=== PATIENT | female | born 1945 | race Two or more races ===

== ENCOUNTER 2017-09-23 20:47 | Emergency (ER) | payer OTHER ==
[~2017-09-23] VITALS: Ht 170.2 cm; Wt 98.9 kg
[~2017-09-23 20:47] MED LIST: COSOPT PF EYE1 EACH; GABAPENTIN600 MG; HUMULIN N3 ML; HUMULIN R500 U/ML; LANTUS100 U/ML; LOSARTAN-HCTZ1 EAC1; SIMVASTATIN40 MG; SYNTHROID150 MCG
[2017-09-24] MEDS ORDERED: ZOFRAN ODT4 MG PO (02:56)
== END 2017-09-24 03:01 | disposition home or self-care (01) ==
LOC: ER 20:47
DX: E86.0 Dehydration (principal); R11.2 Nausea with vomiting, unspecified; E11.65 Type 2 diabetes mellitus with hyperglycemia; T61.771A Other fish poisoning, accidental (unintentional), initial encounter; Y92.89 Other specified places as the place of occurrence of the external cause

== ENCOUNTER 2017-11-06 13:45 | Inpatient (IN) | payer OTHER ==
[~2017-11-06] VITALS: Ht 170.2 cm; Wt 102.1 kg
[~2017-11-06 13:45] MED LIST changes: +ZOFRAN ODT4 MG PO
[2017-12-06] MEDS ORDERED: HUMALOG100 UNIT/1 (13:34)
[2017-12-13] MEDS ORDERED: DOCUSATE SODIU100 MG PO (10:05)
[2017-12-13] MEDS ORDERED: GABAPENTIN800 MG PO (10:05)
[2017-12-13] MEDS ORDERED: AMOX-CLAV 875-1 EACH PO (10:06)
[2017-12-13] MEDS ORDERED: CLONAZEPAM1 MG PO (10:07)
[2017-12-13] MEDS ORDERED: PERCOCET 5-3251 EACH PO (10:07)
== END 2017-12-13 14:08 | disposition home or self-care (01) | DRG 460 ==
LOC: SURH 12-11 13:45 → O/R 12-12 05:30 → SURH 12-12 05:30
PROVIDERS: Orthopaedic Surgery Orthopaedic Surgery of the Spine
PROC: 0SG00AJ Fusion of Lumbar Vertebral Joint with Interbody Fusion Device, Posterior Approach, Anterior Column, Open Approach (ICD-10-PCS; 2017-12-12)
PROC: 0ST20ZZ Resection of Lumbar Vertebral Disc, Open Approach (ICD-10-PCS; 2017-12-12)
PROC: 07DS3ZZ Extraction of Vertebral Bone Marrow, Percutaneous Approach (ICD-10-PCS; 2017-12-12)
PROC: 0SG00A0 Fusion of Lumbar Vertebral Joint with Interbody Fusion Device, Anterior Approach, Anterior Column, Open Approach (ICD-10-PCS; principal; 2017-12-12 12:45)
DX: M47.26 Other spondylosis with radiculopathy, lumbar region (principal); M48.061 Spinal stenosis, lumbar region without neurogenic claudication; M51.16 Intervertebral disc disorders with radiculopathy, lumbar region; I10 Essential (primary) hypertension; E11.9 Type 2 diabetes mellitus without complications

== ENCOUNTER 2017-11-30 09:43 | Outpatient (CLI) | payer OTHER | END 2017-11-30 15:57 | disposition home or self-care (01) | LOC: RAD 09:43 | DX: R07.1 Chest pain on breathing (principal) ==

== ENCOUNTER 2018-01-29 10:58 | Outpatient (CLI) | payer OTHER ==
[~2018-01-29 10:58] MED LIST changes: +AMOX-CLAV 875-1 EACH PO; +CLONAZEPAM1 MG PO; +DOCUSATE SODIU100 MG PO; +GABAPENTIN800 MG PO; +HUMALOG100 UNIT/1; +PERCOCET 5-3251 EACH PO
== END 2018-01-29 11:07 | disposition home or self-care (01) ==
LOC: RAD 10:58
DX: M51.36 Other intervertebral disc degeneration, lumbar region (principal); Z98.1 Arthrodesis status

== ENCOUNTER 2018-03-05 22:56 | Emergency (ER) | payer OTHER ==
[~2018-03-05] VITALS: Ht 170.2 cm; Wt 102.1 kg
[2018-03-06] MEDS ORDERED: ZOFRAN ODT8 MG PO (06:19)
[2018-03-06] MEDS ORDERED: RANITIDINE HCL300 MG PO (06:19)
== END 2018-03-06 | disposition home or self-care (01) ==
LOC: ER 22:56
DX: R10.84 Generalized abdominal pain (principal)

== ENCOUNTER → 2018-03-16 | Outpatient (CLI) | payer OTHER ==
[~2018-03-16] MED LIST changes: +RANITIDINE HCL300 MG PO; +ZOFRAN ODT8 MG PO
== END | disposition home or self-care (01) ==
LOC: RAD 09:28
DX: M48.07 Spinal stenosis, lumbosacral region (principal); Z98.1 Arthrodesis status

== ENCOUNTER 2018-04-12 11:23 | Outpatient (CLI) | payer OTHER | END 2018-04-12 11:26 | disposition home or self-care (01) | LOC: SONOGRAMA 11:23 → LAB 11:23 | DX: R10.13 Epigastric pain (principal); Z51.81 Encounter for therapeutic drug level monitoring; M48.07 Spinal stenosis, lumbosacral region; Z98.1 Arthrodesis status ==

== ENCOUNTER → 2018-04-15 | Outpatient (CLI) | payer OTHER ==
[~2018-04-15] MED LIST changes: +CELECOXIB200 MG PO; +PROTONIX40 MG PO; +SKELAXIN800 MG PO
== END | disposition home or self-care (01) ==
LOC: TOM 03-16 15:00
DX: R10.13 Epigastric pain (principal); K30 Functional dyspepsia; M48.07 Spinal stenosis, lumbosacral region; Z98.1 Arthrodesis status
CPT/HCPCS: 72148; 74178; Q9965

== ENCOUNTER 2018-04-25 13:50 | Emergency (ER) | payer OTHER ==
[~2018-04-25] VITALS: Ht 170.2 cm; Wt 99.8 kg
[~2018-04-25 13:50] MED LIST changes: -CELECOXIB200 MG PO; -PROTONIX40 MG PO; -SKELAXIN800 MG PO
[2018-04-25] MEDS ORDERED: PROTONIX40 MG PO (14:50)
[2018-04-25] MEDS ORDERED: PERCOCET 5-3251 EACH PO (20:18)
[2018-04-25] MEDS ORDERED: SKELAXIN800 MG PO (20:18)
[2018-04-25] MEDS ORDERED: CELECOXIB200 MG PO (20:18)
== END 2018-04-25 21:38 | disposition home or self-care (01) ==
LOC: ER 13:50
DX: I95.89 Other hypotension (principal); R10.13 Epigastric pain

== ENCOUNTER 2018-08-22 13:56 | Outpatient (CLI) | payer OTHER ==
[~2018-08-22 13:56] MED LIST changes: +CELECOXIB200 MG PO; +PROTONIX40 MG PO; +SKELAXIN800 MG PO
== END 2018-08-22 14:01 | disposition home or self-care (01) ==
LOC: MAMO-SONO 13:56
DX: Z12.31 Encounter for screening mammogram for malignant neoplasm of breast (principal); C50.311 Malignant neoplasm of lower-inner quadrant of right female breast; C18.2 Malignant neoplasm of ascending colon; Z85.3 Personal history of malignant neoplasm of breast; D51.1 Vitamin B12 deficiency anemia due to selective vitamin B12 malabsorption with proteinuria; D51.0 Vitamin B12 deficiency anemia due to intrinsic factor deficiency; D51.3 Other dietary vitamin B12 deficiency anemia; Z86.010 Personal history of colon polyps; E03.8 Other specified hypothyroidism; E78.49 Other hyperlipidemia; E08.21 Diabetes mellitus due to underlying condition with diabetic nephropathy; E08.42 Diabetes mellitus due to underlying condition with diabetic polyneuropathy; E08.321 Diabetes mellitus due to underlying condition with mild nonproliferative diabetic retinopathy with macular edema; M51.06 Intervertebral disc disorders with myelopathy, lumbar region; I10 Essential (primary) hypertension; Z90.11 Acquired absence of right breast and nipple

== ENCOUNTER 2018-08-22 14:47 | Outpatient (CLI) | payer OTHER | END 2018-08-22 15:45 | disposition home or self-care (01) | LOC: NUCLEAR 14:47 | DX: C50.311 Malignant neoplasm of lower-inner quadrant of right female breast (principal); C18.2 Malignant neoplasm of ascending colon; D51.1 Vitamin B12 deficiency anemia due to selective vitamin B12 malabsorption with proteinuria; D51.0 Vitamin B12 deficiency anemia due to intrinsic factor deficiency; D51.3 Other dietary vitamin B12 deficiency anemia; Z86.010 Personal history of colon polyps; E03.9 Hypothyroidism, unspecified; E78.5 Hyperlipidemia, unspecified; E08.21 Diabetes mellitus due to underlying condition with diabetic nephropathy; M51.06 Intervertebral disc disorders with myelopathy, lumbar region; I10 Essential (primary) hypertension; Z90.11 Acquired absence of right breast and nipple; M81.0 Age-related osteoporosis without current pathological fracture ==

== ENCOUNTER → 2018-10-17 | Outpatient (CLI) | payer OTHER | END | disposition home or self-care (01) | LOC: RAD 11:26 | DX: M51.36 Other intervertebral disc degeneration, lumbar region (principal) ==

== ENCOUNTER 2019-01-23 09:27 | Outpatient (CLI) | payer OTHER | END 2019-01-23 09:35 | disposition home or self-care (01) | LOC: NUCLEAR 09:27 | DX: I87.2 Venous insufficiency (chronic) (peripheral) (principal); C50.311 Malignant neoplasm of lower-inner quadrant of right female breast; Z85.3 Personal history of malignant neoplasm of breast; M51.06 Intervertebral disc disorders with myelopathy, lumbar region ==

== ENCOUNTER 2019-01-23 13:24 | Outpatient (CLI) | payer OTHER | END 2019-01-23 13:29 | disposition home or self-care (01) | LOC: MRI 13:24 | DX: M48.061 Spinal stenosis, lumbar region without neurogenic claudication (principal); Z98.1 Arthrodesis status | CPT/HCPCS: 72148 ==

== ENCOUNTER 2019-01-31 10:33 | Outpatient (CLI) | payer OTHER | END 2019-01-31 10:40 | disposition home or self-care (01) | LOC: NUCLEAR 10:33 | DX: I73.9 Peripheral vascular disease, unspecified (principal); C50.311 Malignant neoplasm of lower-inner quadrant of right female breast; C18.2 Malignant neoplasm of ascending colon; Z85.3 Personal history of malignant neoplasm of breast; D51.1 Vitamin B12 deficiency anemia due to selective vitamin B12 malabsorption with proteinuria; D51.3 Other dietary vitamin B12 deficiency anemia; Z86.010 Personal history of colon polyps; E03.8 Other specified hypothyroidism; E78.49 Other hyperlipidemia; E08.21 Diabetes mellitus due to underlying condition with diabetic nephropathy; E08.42 Diabetes mellitus due to underlying condition with diabetic polyneuropathy; E08.321 Diabetes mellitus due to underlying condition with mild nonproliferative diabetic retinopathy with macular edema; M51.06 Intervertebral disc disorders with myelopathy, lumbar region; I10 Essential (primary) hypertension; Z90.11 Acquired absence of right breast and nipple ==

== ENCOUNTER 2019-02-05 10:27 | Outpatient (CLI) | payer OTHER | END 2019-02-05 10:32 | disposition home or self-care (01) | LOC: TOM 10:27 | DX: I71.2 Thoracic aortic aneurysm, without rupture (principal) ==

== ENCOUNTER 2019-02-19 22:49 | Emergency (ER) | payer OTHER ==
[~2019-02-19] VITALS: Ht 165.1 cm; Wt 85.7 kg
== END 2019-02-20 13:00 | disposition home or self-care (01) ==
LOC: ER 22:49
DX: T61.774A Other fish poisoning, undetermined, initial encounter (principal); E86.0 Dehydration; R10.11 Right upper quadrant pain; D41.4 Neoplasm of uncertain behavior of bladder; Y92.89 Other specified places as the place of occurrence of the external cause

== ENCOUNTER 2019-06-06 06:58 | Outpatient (CLI) | payer OTHER | END 2019-06-06 07:06 | disposition home or self-care (01) | LOC: RAD 06:58 → LAB 06:58 | DX: K80.00 Calculus of gallbladder with acute cholecystitis without obstruction (principal); K92.1 Melena; C18.2 Malignant neoplasm of ascending colon; I10 Essential (primary) hypertension ==

== ENCOUNTER 2019-06-18 08:51 | Day surgery (SDC) | payer OTHER ==
[~2019-06-18] VITALS: Ht 170.2 cm; Wt 104.3 kg
== END 2019-06-18 17:15 | disposition home or self-care (01) ==
LOC: CIR.AMB 08:51
DX: K80.10 Calculus of gallbladder with chronic cholecystitis without obstruction (principal)

== ENCOUNTER 2020-01-01 10:51 | Outpatient (CLI) | payer OTHER | END 2020-01-01 10:53 | disposition home or self-care (01) | LOC: MAMO-SONO 10:51 | PROVIDERS: ATTEND Internal Medicine Hematology & Oncology | DX: C50.311 Malignant neoplasm of lower-inner quadrant of right female breast (principal); C18.2 Malignant neoplasm of ascending colon; Z85.3 Personal history of malignant neoplasm of breast; D51.1 Vitamin B12 deficiency anemia due to selective vitamin B12 malabsorption with proteinuria; D51.0 Vitamin B12 deficiency anemia due to intrinsic factor deficiency; D51.3 Other dietary vitamin B12 deficiency anemia; Z86.010 Personal history of colon polyps; E03.8 Other specified hypothyroidism; E78.49 Other hyperlipidemia; E08.21 Diabetes mellitus due to underlying condition with diabetic nephropathy; E08.42 Diabetes mellitus due to underlying condition with diabetic polyneuropathy; M51.06 Intervertebral disc disorders with myelopathy, lumbar region; I10 Essential (primary) hypertension; Z90.11 Acquired absence of right breast and nipple; K82.8 Other specified diseases of gallbladder ==

== ENCOUNTER 2020-05-13 10:13 | Outpatient (CLI) | payer OTHER | END 2020-05-13 10:18 | disposition home or self-care (01) | LOC: RAD 10:13 | PROVIDERS: ATTEND Physical Medicine & Rehabilitation | DX: M25.561 Pain in right knee (principal); M25.562 Pain in left knee; M25.551 Pain in right hip; M25.552 Pain in left hip ==

== ENCOUNTER 2020-05-25 14:21 | Outpatient (CLI) | payer OTHER | END 2020-05-25 14:25 | disposition home or self-care (01) | LOC: TOM 14:21 | PROVIDERS: ATTEND Internal Medicine | DX: I72.8 Aneurysm of other specified arteries (principal); I71.9 Aortic aneurysm of unspecified site, without rupture ==

== ENCOUNTER 2020-08-06 11:09 | Outpatient (CLI) | payer OTHER | END 2020-08-06 11:23 | disposition home or self-care (01) | LOC: RAD 11:09 | PROVIDERS: ATTEND General Practice | DX: I10 Essential (primary) hypertension (principal) ==

== ENCOUNTER 2020-11-12 08:58 | Outpatient (CLI) | payer OTHER | END 2020-11-12 08:59 | disposition home or self-care (01) | LOC: NUCLEAR 08:58 | PROVIDERS: ATTEND General Practice | DX: M79.604 Pain in right leg (principal); M79.605 Pain in left leg; I73.9 Peripheral vascular disease, unspecified; R60.0 Localized edema ==

== ENCOUNTER 2020-11-16 09:07 | Outpatient (CLI) | payer OTHER | END 2020-11-16 09:09 | disposition home or self-care (01) | LOC: NUCLEAR 09:07 | PROVIDERS: ATTEND Physical Medicine & Rehabilitation | DX: M79.604 Pain in right leg (principal); M79.605 Pain in left leg; R60.0 Localized edema ==

== ENCOUNTER 2020-12-02 10:21 | Outpatient (CLI) | payer OTHER | END 2020-12-02 10:30 | disposition home or self-care (01) | LOC: RAD 10:21 | PROVIDERS: ATTEND Physical Medicine & Rehabilitation | DX: S70.02XA Contusion of left hip, initial encounter (principal); S60.211A Contusion of right wrist, initial encounter; M25.552 Pain in left hip; M25.531 Pain in right wrist ==

== ENCOUNTER 2021-10-12 14:32 | Outpatient (CLI) | payer OTHER | END 2021-10-12 14:37 | disposition home or self-care (01) | LOC: MAMO-SONO 14:32 | PROVIDERS: ATTEND Internal Medicine Hematology & Oncology | DX: C50.311 Malignant neoplasm of lower-inner quadrant of right female breast (principal); C18.2 Malignant neoplasm of ascending colon ==

== ENCOUNTER → 2021-10-12 | Outpatient (CLI) | payer OTHER | END | disposition home or self-care (01) | LOC: NUCLEAR 07:00 | PROVIDERS: ATTEND Internal Medicine Hematology & Oncology | DX: C50.311 Malignant neoplasm of lower-inner quadrant of right female breast (principal) ==

== ENCOUNTER 2021-12-16 10:23 | Outpatient (CLI) | payer OTHER | END 2021-12-16 10:27 | disposition home or self-care (01) | LOC: RAD 10:23 | DX: M25.512 Pain in left shoulder (principal); M25.612 Stiffness of left shoulder, not elsewhere classified ==

== ENCOUNTER 2022-06-07 08:28 | Outpatient (CLI) | payer OTHER | END 2022-06-07 08:34 | disposition home or self-care (01) | LOC: TOM 08:28 | PROVIDERS: ATTEND Internal Medicine | DX: I71.40 Abdominal aortic aneurysm, without rupture, unspecified (principal); I71.9 Aortic aneurysm of unspecified site, without rupture ==

== ENCOUNTER 2022-12-05 09:30 | Outpatient (CLI) | payer OTHER | END 2022-12-05 09:32 | disposition home or self-care (01) | LOC: MAMO-SONO 09:30 | PROVIDERS: ATTEND Internal Medicine Hematology & Oncology | DX: N63.0 Unspecified lump in unspecified breast (principal); N64.4 Mastodynia; Z12.31 Encounter for screening mammogram for malignant neoplasm of breast; Z85.3 Personal history of malignant neoplasm of breast ==

== ENCOUNTER 2022-12-13 07:42 | Outpatient (CLI) | payer OTHER | END 2022-12-13 07:45 | disposition home or self-care (01) | LOC: NUCLEAR 07:42 | PROVIDERS: ATTEND Internal Medicine Hematology & Oncology | DX: C50.311 Malignant neoplasm of lower-inner quadrant of right female breast (principal); C18.2 Malignant neoplasm of ascending colon; Z85.3 Personal history of malignant neoplasm of breast; D51.1 Vitamin B12 deficiency anemia due to selective vitamin B12 malabsorption with proteinuria; D51.0 Vitamin B12 deficiency anemia due to intrinsic factor deficiency; D51.3 Other dietary vitamin B12 deficiency anemia; Z86.010 Personal history of colon polyps; E03.9 Hypothyroidism, unspecified; E78.5 Hyperlipidemia, unspecified; E08.21 Diabetes mellitus due to underlying condition with diabetic nephropathy; E08.42 Diabetes mellitus due to underlying condition with diabetic polyneuropathy; M51.06 Intervertebral disc disorders with myelopathy, lumbar region; I10 Essential (primary) hypertension; Z90.11 Acquired absence of right breast and nipple; K52.9 Noninfective gastroenteritis and colitis, unspecified; E08.3219 Diabetes mellitus due to underlying condition with mild nonproliferative diabetic retinopathy with macular edema, unspecified eye | CPT/HCPCS: 78815; A9552 ==

== ENCOUNTER 2024-02-08 07:45 | Outpatient (CLI) | payer OTHER ==
[~2024-02-08 07:45] MED LIST changes: +CARVEDILOL12.5 M1 PO; +COZAAR100 MG PO; +HUMULIN N100 UNIT/2 SUBCUTANEO; +HUMULIN R100 UNIT/1 SUBCUTANEO; +LASIX40 MG PO; +NEURONTIN800 MG PO; +SIMVASTATIN5 MG PO; +SYNTHROID175 MCG PO; +SYNTHROID200 MCG PO
== END 2024-02-08 07:46 | disposition home or self-care (01) ==
LOC: NUCLEAR 07:45
PROVIDERS: ATTEND Internal Medicine Hematology & Oncology
DX: C50.311 Malignant neoplasm of lower-inner quadrant of right female breast (principal); C18.2 Malignant neoplasm of ascending colon; M81.0 Age-related osteoporosis without current pathological fracture
CPT/HCPCS: 77080; 78815; A9552

== ENCOUNTER 2024-02-08 12:31 | Outpatient (CLI) | payer OTHER | END 2024-02-08 12:34 | disposition home or self-care (01) | LOC: MAMO-SONO 12:31 | PROVIDERS: ATTEND Internal Medicine Hematology & Oncology | DX: N63.0 Unspecified lump in unspecified breast (principal); N64.4 Mastodynia; C50.311 Malignant neoplasm of lower-inner quadrant of right female breast; C18.2 Malignant neoplasm of ascending colon; Z85.3 Personal history of malignant neoplasm of breast; D51.1 Vitamin B12 deficiency anemia due to selective vitamin B12 malabsorption with proteinuria; D51.0 Vitamin B12 deficiency anemia due to intrinsic factor deficiency; D51.3 Other dietary vitamin B12 deficiency anemia; Z86.010 Personal history of colon polyps; E03.9 Hypothyroidism, unspecified; E78.5 Hyperlipidemia, unspecified; E08.21 Diabetes mellitus due to underlying condition with diabetic nephropathy; E08.42 Diabetes mellitus due to underlying condition with diabetic polyneuropathy; E08.3219 Diabetes mellitus due to underlying condition with mild nonproliferative diabetic retinopathy with macular edema, unspecified eye; M51.06 Intervertebral disc disorders with myelopathy, lumbar region; Z90.11 Acquired absence of right breast and nipple; K82.9 Disease of gallbladder, unspecified ==

== ENCOUNTER 2025-05-22 07:22 | Outpatient (CLI) | payer OTHER | END 2025-05-22 07:23 | disposition home or self-care (01) | LOC: NUCLEAR 07:22 | PROVIDERS: ATTEND Internal Medicine Hematology & Oncology | DX: C50.311 Malignant neoplasm of lower-inner quadrant of right female breast (principal); C18.2 Malignant neoplasm of ascending colon | CPT/HCPCS: 78816; A9552 ==

== ENCOUNTER 2025-06-05 08:12 | Outpatient (CLI) | payer OTHER | END 2025-06-05 08:15 | disposition home or self-care (01) | LOC: TOM 08:12 | PROVIDERS: ATTEND Internal Medicine Gastroenterology | DX: K56.600 Partial intestinal obstruction, unspecified as to cause (principal); Z86.0101 Personal history of adenomatous and serrated colon polyps; Z85.038 Personal history of other malignant neoplasm of large intestine ==